=== PATIENT | female | born 1970 | race Two or more races ===

== ENCOUNTER 2019-09-26 16:05 | Emergency (ER) | payer BC, MEDICAID, OTHER ==
[~2019-09-26] VITALS: Ht 152.4 cm; Wt 70.3 kg
--- NOTE | 2019-09-26 16:19 | NUR ---
Dr Liang at the bedside for MSE.
[2019-09-26] MEDS ORDERED: HYDROMORPHONE 1 MG/1 ML DISP.SYRIN ONE (16:28)
[2019-09-26] MEDS ORDERED: ONDANSETRON 4 MG/2 ML VIAL ONE (16:28)
[2019-09-26] MEDS ORDERED: HYDROMORPHONE 1 MG/1 ML DISP.SYRIN IV ONE (16:30)
[2019-09-26] MEDS ORDERED: IV NORMAL SALINE 1000 ML BAG IV ONE (16:30)
[2019-09-26] MEDS ORDERED: ONDANSETRON 4 MG/2 ML VIAL IV ONE (16:30)
[2019-09-26 16:41] LABS: *BILIRUBIN,URIN NEGATIVE (NEGATIVE); *BLOOD, URINE 1+ (NEGATIVE); *KETONES,URINE NEGATIVE (NEGATIVE); *UROBILINOGEN,URINE 0.2 E.U./dl (NORMAL); LEUKOCYTE ESTERASE ,URINE NEGATIVE (NEGATIVE); NITRITE, URINE NEGATIVE (NEGATIVE); PH,URINE 5.5 (5.0-8.0); UGLUCOSE NEGATIVE (NEGATIVE)
[2019-09-26 16:43] LABS: BASOPHILS % (AUTO) 0.2 % (0.0-2.0); EOSINOPHILS % (AUTO) 0.1 % (0.0-7.0); HEMATOCRIT 42.3 % (31.2-41.9); HEMOGLOBIN 14.6 g/dL (10.9-14.3); LYMPHOCYTES # (AUTO) 0.9 K/uL (20.0-40.0); LYMPHOCYTES % (AUTO) 10.4 % (20.5-51.5); MEAN CORPUSCULAR HEMOGLOBIN 32.1 uug (24.7-32.8); MEAN CORPUSCULAR HGB CONC 34 g/dL (32.3-35.6); MEAN CORPUSCULAR VOLUME 93.2 fL (75.5-95.3); MONOCYTES # (AUTO) 0.4 K/uL (2.0-10.0); MONOCYTES % (AUTO) 5.2 % (0.0-11.0); NEUTROPHILS # (AUTO) 7.1 K/uL (1.8-8.9); NEUTROPHILS % (AUTO) 84.1 % (38.5-71.5); PLATELET COUNT (AUTO) 279 K/uL (179-408); RED BLOOD CELL COUNT(AUTO) 4.54 MIL/uL (3.63-4.92); WHITE BLOOD COUNT (AUTO) 8.4 K/uL (3.8-11.8)
[2019-09-26 16:47] LABS: CARBON DIOXIDE 24 mmol/L (21-32); CHLORIDE 103 mmol/L (98-107); CREATININE 0.8 mg/dL (0.6-1.3); GLUCOSE 108 mg/dL (74-106); POTASSIUM 2.9 mmol/L (3.5-5.1); UREA NITROGEN, BLOOD 13 mg/dL (7-18)
[2019-09-26 16:51] LABS: *CLARITY,URINE HAZY (CLEAR); *COLOR,URINE DARK YELLOW (YELLOW)
[2019-09-26 16:52] LABS: ALANINE AMINOTRANSFERASE 37 U/L (14-59); ALKALINE PHOSPHATASE 52 U/L (50-136); ASPARTATE AMINOTRANSFERASE 19 U/L (15-37); BACTERIA,URINE FEW /HPF (NONE SEEN); BILIRUBIN,TOTAL 0.5 mg/dL (0.2-1.0); LIPASE 90 U/L (73-393); MUCUS,URINE MANY /LPF (0-FEW); SQUAMOUS EPITHELIAL CELL,UR MODERATE /HPF (NONE SEEN); TOTAL PROTEIN, SERUM 7.9 g/dL (6.4-8.2); WBC,URINE 0-3 /HPF (0-3)
[2019-09-26 16:53] LABS: BILIRUBIN,DIRECT < 0.1 mg/dL (0.0-0.2)
[2019-09-26] MEDS ORDERED: POTASSIUM CHLORIDE 20 MEQ TAB.PRT.SR PO ONE (17:00)
[2019-09-26] MEDS ORDERED: POTASSIUM CHLORIDE 20 MEQ TAB.PRT.SR ONE (17:08)
[2019-09-26 17:41] VITALS: BP 115/67
--- NOTE | 2019-09-26 17:41 | NUR ---
IV removed. Catheter intact and site benign. Pressure and 4x4 gauze applied to site. No bleeding noted.
== END 2019-09-26 17:42 | disposition home or self-care (01) ==
LOC: ER 16:08
DX: K52.9 Noninfective gastroenteritis and colitis, unspecified (principal); E87.6 Hypokalemia
CPT/HCPCS: 36415; 80048; 80076; 81000; 81001; 83690; 84702; 85025; 87086; 96361; 96365; 96375; 99284; J1170; J2405; A4663; J7030

== ENCOUNTER 2021-05-21 09:51 | Emergency (ER) | payer BC, MEDICAID, OTHER ==
[~2021-05-21] VITALS: Ht 152.4 cm; Wt 72.6 kg
[2021-05-21 10:26] LABS: *BILIRUBIN,URIN NEGATIVE (NEGATIVE); *BLOOD, URINE NEGATIVE (NEGATIVE); *CLARITY,URINE CLEAR (CLEAR); *COLOR,URINE YELLOW (YELLOW); *KETONES,URINE NEGATIVE (NEGATIVE); *UROBILINOGEN,URINE 0.2 E.U./dl (NORMAL); LEUKOCYTE ESTERASE ,URINE NEGATIVE (NEGATIVE); NITRITE, URINE NEGATIVE (NEGATIVE); PH,URINE 8.5 (5.0-8.0); UGLUCOSE NEGATIVE (NEGATIVE)
[2021-05-21 10:30] LABS: *URINE HCG, QUAL NEGATIVE (NEGATIVE)
[2021-05-21] MEDS ORDERED: IV NORMAL SALINE 1000 ML BAG IV ONE (10:30)
[2021-05-21 10:34] LABS: HEMATOCRIT 40.3 % (31.2-41.9); MEAN CORPUSCULAR HEMOGLOBIN 31.8 uug (24.7-32.8); MEAN CORPUSCULAR VOLUME 93.4 fL (75.5-95.3); PLATELET COUNT (AUTO) 320 K/uL (179-408)
[2021-05-21 10:38] LABS: CREATININE 0.8 mg/dL (0.6-1.3); POTASSIUM 3.5 mmol/L (3.5-5.1)
[2021-05-21 10:44] LABS: BILIRUBIN,TOTAL 0.4 mg/dL (0.2-1.0); TOTAL PROTEIN, SERUM 7.6 g/dL (6.4-8.2)
[2021-05-21] MEDS ORDERED: KETOROLAC TROMETHAMINE 15 MG INJ IVP ONE (11:00)
[2021-05-21] MEDS ORDERED: KETOROLAC TROMETHAMINE 15 MG INJ ONE (11:09)
[2021-05-21] MEDS ORDERED: IV NORMAL SALINE 250 ML IV ONE (11:43)
[2021-05-21] MEDS ORDERED: IOHEXOL 300MG/ML 100 ML INFUS..BTL ONE (11:43)
[2021-05-21] MEDS ORDERED: SWABABLE VALVE TRANSFER SET EA MC ONE (11:43)
[2021-05-21] MEDS ORDERED: POLY17PO4 PO (12:40)
--- NOTE | 2021-05-21 12:44 | NUR ---
IV removed. Catheter intact and site benign. Pressure and 4x4 gauze applied to site. No bleeding noted.
[2021-05-21 12:50] VITALS: BP 128/72
--- NOTE | 2021-05-21 12:50 | NUR ---
Patient discharged to home in stable condition. Written and verbal after care instructions given. Patient verbalizes understanding of instructions. Stressed follow up or return to ER for worsening s/s.
== END 2021-05-21 12:51 | disposition home or self-care (01) ==
LOC: ER 09:51
DX: R10.9 Unspecified abdominal pain (principal); K59.00 Constipation, unspecified; Z87.19 Personal history of other diseases of the digestive system; Z20.822 Contact with and (suspected) exposure to COVID-19
CPT/HCPCS: 36415; 74177; 76700; 76856; 80053; 81003; 83690; 84703; 85025; 87426; 96374; 99285; J1885; Q9967; A4663; J7030; J7050